=== PATIENT | female | born 1995 | race Caucasian/White ===

== ENCOUNTER 2016-07-30 08:05 | Emergency (ER) | payer MEDICAID ==
[2016-07-30 08:10] VITALS: PULSE 79
--- NOTE | 2016-07-30 08:31 | EDPHY ---
HPI/HX/ROS/PE/MDM Narrative: CHIEF COMPLAINT: Chest tightness, difficulty breathing. HPI: The patient is a 21-year-old female with a history of asthma presenting with chest tightness and difficulty breathing since yesterday. Her tightness is described as feeling like someone is sitting on her chest. She used her Albuterol inhaler to no effect yesterday. She states that it feels different from previous asthma exacerbations and more similar to when she had walking pneumonia. She denies fever, cough, or other complaints. REVIEW OF SYSTEMS: Aside from elements discussed in the HPI, a comprehensive 10-point review of systems was reviewed and is negative. PMH: Asthma. SOCIAL HISTORY: [employer] Student. PHYSICAL EXAM: General:Patient is alert, in no acute distress. ENT:Eyes are normal to inspection. ENT inspection normal. Neck: Normal inspection. Full range of motion. Respiratory:No respiratory distress. Poor air movement, worse on the right than the left. Cardiovascular: Regular rate and rhythm. Strong peripheral pulses. Normal cap refill. Abdomen:The abdomen is nontender to palpation. There are no peritoneal signs. There are normal bowel sounds. Back: Normal to inspection. No tenderness to palpation. Skin: Normal color. No rash. Warm and dry. Extremities: Normal appearance. Full range of motion. Neuro: Oriented x3. Normal motor function. Normal sensory function. ED Course: Chest x-ray and EKG obtained. DuoNeb treatment administered for breathing. Study: PA and Lateral Chest X-ray Indication: Shortness of breath. Results: I viewed the images myself on the PACS system. The radiologist interpretation per Dr. Jasmine is: 1. Clear lungs. No pneumonia. 2. Equivocal trace left pleural effusion. The 12 lead EKG was interpreted by myself. See hard copy and/or "tracemaster" electronic copy for interpretation. 1206: Reassessed patient. Discussed results of x-ray and bloodwork. She is comfortable being discharged. I answered all of her questions. MDM: This is a young healthy patient with sensation of chest pressure. We performed an extensive workup including troponin, D-dimer, EKG and chest x-ray, all of which are normal. There is no evidence for pulmonary embolus, acute coronary syndrome, pericarditis, pneumothorax, rib fracture. On re-evaluation, the patient is comfortable, sitting up in bed and watching a movie on her laptop. She is comfortable with discharge home. - Data Points Laboratory Results: Laboratory Results 07/30/16 10:06 07/30/16 10:00 07/30/16 07/30/16 07/30/16 10:06 10:06 10:00 WBC 10.65 10^3/uL H 10^3/uL (3.80-9.50) RBC 4.77 10^6/uL 10^6/uL (4.18-5.33) Hgb 14.5 g/dL g/dL (12.6-16.3) Hct 42.1 % % (38.0-47.0) MCV 88.3 fL fL (81.5-99.8) MCH 30.4 pg pg (27.9-34.1) MCHC 34.4 g/dL g/dL (32.4-36.7) RDW 11.9 % % (11.5-15.2) Plt Count 171 10^3/uL 10^3/uL (150-400) MPV 11.1 fL fL (8.7-11.7) Neut % (Auto) 80.3 % H % (39.3-74.2) Lymph % (Auto) 12.7 % L % (15.0-45.0) [place] % (Auto) 5.2 % % (4.5-13.0) Eos % (Auto) 0.8 % % (0.6-7.6) Baso % (Auto) 0.4 % % (0.3-1.7) Nucleat RBC Rel Count 0.0 % % (0.0-0.2) Absolute Neuts (auto) 8.57 10^3/uL H 10^3/uL (1.70-6.50) Absolute Lymphs (auto) 1.35 10^3/uL 10^3/uL (1.00-3.00) Absolute Monos (auto) 0.55 10^3/uL 10^3/uL (0.30-0.80) Absolute Eos (auto) 0.08 10^3/uL 10^3/uL (0.03-0.40) Absolute Basos (auto) 0.04 10^3/uL 10^3/uL (0.02-0.10) Absolute Nucleated RBC 0.00 10^3/uL 10^3/uL (0-0.01) Immature Gran % 0.6 % % (0.0-1.1) Immature Gran # 0.06 10^3/uL 10^3/uL (0.00-0.10) D-Dimer < 0.27 ug/mLFEU ug/mLFEU (0.00-0.50) Sodium 144 mEq/L mEq/L (134-144) Potassium 3.6 mEq/L mEq/L (3.5-5.2) Chloride 108 mEq/L mEq/L (97-110) Carbon Dioxide 22 mEq/l mEq/l (22-31) Anion Gap 14 mEq/L mEq/L (8-16) BUN 13 mg/dL mg/dL (7-23) Creatinine 0.8 mg/dL mg/dL (0.6-1.0) Estimated GFR > 60 Glucose 79 mg/dL mg/dL (70-100) Calcium 9.0 mg/dL mg/dL (8.5-10.4) Troponin I < 0.012 ng/mL ng/mL (0-0.034) Medications Given: Discontinued Medications Albuterol/Ipratropium (Duoneb) 3 ml IH EDNOW ONE Stop: 07/30/16 08:52 Last Admin: 07/30/16 09:03 Dose: 3 ml General Time Seen by Provider: 07/30/16 08:24 Initial Vital Signs: Initial Vital Signs Temperature (C) 36.6 C 07/30/16 08:08 Heart Rate 79 07/30/16 08:08 Respiratory Rate 18 07/30/16 08:08 Blood Pressure 112/56 L 07/30/16 08:08 O2 Sat (%) 98 07/30/16 08:08 O2 Delivery Mode Room Air Allergies/Adverse Reactions: codeine Allergy (Verified 07/30/16 08:10) Home Medications: Medication Instructions Recorded Sprintec 28 Day Tablet 07/12/15 Albuterol Hfa Anes Only [Proair 2 puffs IH QID 07/30/16 Hfa Icu (*)] Dextroamphetamine/Amphetamine 10 mg PO 07/30/16 [Adderall Xr 10 mg Capsule] Valcyclovir 07/30/16 Departure - Departure Disposition: Home, Routine, Self-Care Clinical Impression: Asthma exacerbation, Chest pain Condition: Good Instructions: Chest Pain (ED), Asthma (ED) Additional Instructions: Use your inhaler as instructed. Call your primary care provider if symptoms are not improving in the next 1-2 days. Return to the emergency department if you experience any serious worsening of condition. Referrals: Ronda Andrade PA [Primary Care Provider] - As per Instructions Report Scribed for: Marco Antonio England Report Scribed by: Korey Klein Date of Report: 07/30/16 Time of Report: 08:25 Physician Review and Approval Statement: Portions of this note were transcribed by a biomedical engineering technologist. I personally performed a history, physical exam, medical decision making, and confirmed accuracy of information the transcribed note.
--- NOTE | 2016-07-30 08:50 | CPEKG ---
Heart Rate: 58 RR Interval: 1034 P-R Interval: 136 QRSD Interval: 76 QT Interval: 412 QTC Interval: 405 P [place]: 62 QRS [place]: 61 T Wave [place]: 37 EKG Severity - NORMAL ECG - EKG Impression: SINUS RHYTHM Electronically Signed By: Tye Davison 31-Jul-2016 10:01:24
[2016-07-30] MEDS ORDERED: IPRATROPIUM/ALBUTEROL 3 ML DEYVIAL IH ONE (08:51)
[2016-07-30 10:19] LABS: % IMMATURE GRANULYOCYTES 0.6 % (0.0-1.1); ABSOLUTE IMMATURE GRANULOCYTES 0.06 10^3/uL (0.00-0.10); ADD DIFF? NO; ADD MORPH? NO; ADD SCAN? NO; ATYPICAL LYMPHOCYTE FLAG 0 (0-99); FRAGMENT RBC FLAG 0 (0-99); HEMATOCRIT 42.1 % (38.0-47.0); HEMOGLOBIN 14.5 g/dL (12.6-16.3); LEFT SHIFT FLG 10 (0-99); LIPEMIA HEMOLYSIS FLAG 90 (0-99); MEAN CELL HEMOGLOBIN 30.4 pg (27.9-34.1); MEAN CELL HEMOGLOBIN CONCENTR. 34.4 g/dL (32.4-36.7); MEAN CELL VOLUME 88.3 fL (81.5-99.8); MEAN PLATELET VOLUME 11.1 fL (8.7-11.7); PLATELET CLUMPS FLAG 0 (0-99); PLATELET COUNT 171 10^3/uL (150-400); RED BLOOD CELL COUNT 4.77 10^6/uL (4.18-5.33); RED CELL DISTRIBUTION WIDTH 11.9 % (11.5-15.2)
[2016-07-30 11:11] LABS: ANION GAP 14 mEq/L (8-16); CARBON DIOXIDE 22 mEq/l (22-31); CHLORIDE 108 mEq/L (97-110); CREATININE 0.8 mg/dL (0.6-1.0); GLOMERULAR FILTRATION RATE > 60; GLUCOSE 79 mg/dL (70-100); POTASSIUM 3.6 mEq/L (3.5-5.2); SODIUM 144 mEq/L (134-144)
[2016-07-30 11:58] LABS: TROPONIN I < 0.012 ng/mL (0-0.034)
[2016-07-30 12:19] VITALS: BP 112/64; RESP 16; TEMP 98.1; O2SAT 97
== END 2016-07-30 12:19 | disposition home or self-care (01) ==
DX: J45.901 Unspecified asthma with (acute) exacerbation (principal)

== ENCOUNTER → 2017-09-04 | Outpatient (CLI) | payer OTHER | LOC: GIMAGING 19:09 | PROVIDERS: ATTEND Nurse Practitioner Family | DX: M79.89 Other specified soft tissue disorders (principal) | CPT/HCPCS: 73610-PO; 73630-PO ==